=== PATIENT | female | born 1960 | race American Indian/Alaskan Native ===

== ENCOUNTER 2025-03-28 14:29 | Emergency (ER) | payer OTHER ==
[~2025-03-28] VITALS: Ht 157.5 cm; Wt 56.0 kg
[~2025-03-28 14:29] MED LIST: CEFUROXIME500 MG PO; DERMACINRX LID1 EACH TD; ELIMITE60 GM TOP; ESTRADIOL42.5 GM PV; GLIPIZIDE XL2.5 MG PO; GLUCOSE TEST S1 EACH MISC; LEVEMIR100 UNIT/1 SUB-Q; LIPITOR20 MG PO; TRADJENTA5 MG PO
[2025-03-28 14:51] LABS: BASOPHILS 0.2 % (0.1-1.2); EOSINOPHILS 0.3 % (0.7-5.8); LYMPHOCYTES 7.0 % (19.3-51.7); MCH 28.6 PG (25.6-32.2); MCHC 34.8 g/dL (32.2-35.5); MCV 82.2 fL (79.4-94.8); MONOCYTES 5.5 % (4.7-12.5); NEUTROPHILS 86.6 % (34.0-71.1); RBC 4.83 M/uL (3.93-5.22)
[2025-03-28] MEDS ORDERED: SODIUM CHLORIDE 0.9% 1,000 ML IV PRN ×2 (15:00)
[2025-03-28 15:09] LABS: INR 1.03 (0.80-1.30); PROTIME 13.1 Sec (11.2-14.2)
[2025-03-28 15:10] LABS: ALT (SGPT) 10.0 U/L (14-59); AST (SGOT) 11.0 U/L (15-37); GLOMERULAR FILTRATION RATE,EST 101.0 mL/min (>60); PROTEIN, TOTAL 7.3 g/dL (6.4-8.2); UREA NITROGEN 13.0 mg/dL (7-18)
[2025-03-28 15:42] LABS: LACTIC ACID, BLOOD 1.1 mmol/L (0.4-2.0)
[2025-03-28 15:55] LABS: CORONAVIRUS COVID-19 AG NEGATIVE (NEGATIVE)
[2025-03-28 16:26] LABS: BLOOD/HGB, URINE TRACE-L (Negative); KETONE, URINE SMALL (Negative); LEUK ESTERASE, URINE NEGATIVE (negative); NITRITE, URINE POSITIVE (negative)
[2025-03-28 16:33] LABS: BACTERIA, URINE 4+ /hpf (negative); CASTS, URINE NONE SEEN \\lpf; CRYSTALS, URINE NONE SEEN (0-1+); EPITHELIAL CELLS, URINE SQUAMOUS 1+ /lpf (0-1+); REFLEX CULTURE, URINE Yes (No)
[2025-03-28] MEDS ORDERED: IBUPROFEN 600 MG TAB PO ONE (17:00)
[2025-03-28] MEDS ORDERED: CEPHALEXIN500 M1 PO (17:19)
[2025-03-28] MEDS ORDERED: METFORMIN HCL500 MG PO (17:19)
[2025-03-28 17:30] VITALS: BP 148/82
== END 2025-03-28 17:30 | disposition home or self-care (01) ==
LOC: ED 14:29
PROVIDERS: Emergency Medicine
DX: N39.0 Urinary tract infection, site not specified (principal); E11.65 Type 2 diabetes mellitus with hyperglycemia; E78.5 Hyperlipidemia, unspecified; Z88.0 Allergy status to penicillin; Z79.4 Long term (current) use of insulin; Z79.84 Long term (current) use of oral hypoglycemic drugs; Z79.899 Other long term (current) drug therapy
CPT/HCPCS: 36415; 71045; 80053; 81001; 82800; 83036; 83605; 83735; 85025; 85610; 85730; 87040; 87077; 87088; 87186; 96365; 96375; 99284-25; A9270; J0696; J2405; J7030